=== PATIENT | female | born 1985 | race Two or more races ===

== ENCOUNTER → 2024-09-04 | Emergency (ER) | payer BC ==
[~2024-09-04] VITALS: Ht 165.1 cm; Wt 72.6 kg
[~2024-09-04] MED LIST: ACIPHEX20 MG PO; ALLERGY RELIEF10 M3 PO; ALPRAZOLAM OD0.25 MG PO; MIDODRINE HCL5 MG PO; MONTELUKAST SODI4 M1 PO; ROSUVASTATIN CAL5 MG PO; TEZSPIRE210 MG/1.1 SQ; TIADYLT ER120 MG PO; WIXELA 250-501 EACH IH
== END | disposition left against medical advice (07) ==
LOC: ER 19:57
DX: Z53.21 Procedure and treatment not carried out due to patient leaving prior to being seen by health care provider (principal)